=== PATIENT | male | born 1970 | race Caucasian/White ===

== ENCOUNTER 2019-07-20 11:53 | Emergency (ER) | payer SELFPAY ==
[~2019-07-20] VITALS: Ht 165.1 cm; Wt 83.5 kg
[2019-07-20 11:58] VITALS: Ht 165.1 cm; Wt 83.5 kg
[2019-07-20 12:38] LABS: BASOPHIL % 0.4 % (0-2); PLATELET COUNT 207 x10^3mcL (130-400); RED CELL DISTRIBUTION WIDTH 12.8 % (11.5-14.5)
[2019-07-20 13:00] LABS: CALCIUM 8.8 mg/dL (8.5-10.1); CARBON DIOXIDE 26.9 mmol/L (21-32); CREATININE SERUM 1.5 mg/dL (0.7-1.3); POTASSIUM SERUM 3.9 mmol/L (3.5-5.1)
[2019-07-20 13:05] LABS: ALBUMIN 4.3 g/dL (3.4-5.0); BILIRUBIN TOTAL 0.8 mg/dL (0.20-1.00); TOTAL PROTEIN, SERUM 7.2 g/dL (6.4-8.2); URIC ACID 7.1 mg/dL (3.5-7.2)
[2019-07-20 14:15] LABS: microscopic required? YES; urine erythrocyte 3+ (NEGATIVE)
[2019-07-20 14:53] VITALS: BP 134/85
== END 2019-07-20 14:53 | disposition home or self-care (01) ==
LOC: ED 11:53
PROVIDERS: Emergency Medicine
DX: N13.2 Hydronephrosis with renal and ureteral calculous obstruction (principal); D72.829 Elevated white blood cell count, unspecified
CPT/HCPCS: J1885; J7030